=== PATIENT | male | born 1990 | race Caucasian/White ===

== ENCOUNTER 2020-11-07 19:29 | Inpatient (IN) | payer OTHER ==
[~2020-11-07] VITALS: Ht 167.6 cm; Wt 75.4 kg
--- NOTE | ~2020-11-07 | PROC ---
[facility] [address] [place] [address] PROCEDURE REPORT Name: JACQUIE MOTLEY JR Room: [address] IN .R.#: [id number] Admission: 11/07/20 Attend Phys: Emery Heaton MD Discharge: 11/14/20 Date of : 89 Report #: [id number] THIS REPORT FOR: cc: FAM - No family physician/PCP FAM - No family physician/PCP [facility],Medical Records Staff ~ For GI report, please see the Provation report in Perceptive 7 content. By: [id number] Records Staff THOMAS /DUSTIN
[2020-11-07 19:37] VITALS: BP 154/90
[2020-11-07 20:11] LABS: URINE BLOOD 1+ (Negative); URINE CLARITY CLEAR; URINE COLOR DARK YELLOW; URINE GLUCOSE-RANDOM NEGATIVE (Negative); URINE KETONES 2+ (Negative); URINE LEUKOCYTES-REFLEX NEGATIVE (Negative); URINE PROTEIN 1+ (Negative); URINE SPECIFIC GRAVITY >= 1.030 (1.005-1.030)
[2020-11-07 20:12] LABS: ICTOTEST (BILI CONFIRMATORY) Positive (Negative); URINE BILIRUBIN 3+ (Negative); URINE NITRITE-REFLEX POSITIVE (Negative)
[2020-11-07 20:16] LABS: ABSOLUTE BASOPHILS 0.1 thou/uL (0.0-0.2); ABSOLUTE LYMPHOCYTES 0.7 thou/uL (0.8-5.3); ABSOLUTE MONOCYTES 0.9 thou/uL (0.0-1.2); ABSOLUTE NEUTROPHILS 6.5 thou/uL (1.6-8.1); BASOPHILS 0.6 %; HEMATOCRIT 44.4 % (42.0-52.0); HEMOGLOBIN 15.3 gm/dL (14.0-18.0); LYMPHOCYTES 8.4 %; MCH 37.3 pg (26.0-34.0); MCHC 34.4 g/dL (28.0-37.0); MCV 108.6 fL (80.0-100.0); MONOCYTES 10.9 %; MPV 11.4 fl. (7.2-11.1); NUCLEATED RBCS 0 /100WBC; PLATELET COUNT* 102 thou/uL (150-400); POLYS 80.1 %; RBC 4.09 mil/uL (4.50-6.00); RDW-CV 13.5 % (10.5-14.5); WBC 8.2 thou/uL (4.0-11.0)
[2020-11-07 20:18] LABS: CALCIUM 8.9 mg/dL (8.5-10.1); CREATININE 0.8 mg/dL (0.6-1.3); POTASSIUM 3.9 mmol/L (3.5-5.1)
[2020-11-07 20:20] LABS: MUCUS >6 Heavy strn/LPF (None Seen)
[2020-11-07 20:21] LABS: BACTERIA-REFLEX 1-9 Few /HPF (None Seen); HYALINE CASTS 0-3 Few /LPF (None Seen); SQUAMOUS 0-3 Few /LPF (0-3); URINE RBC 0-2 Rare /HPF (0-2); URINE WBC-REFLEX 0-5 Rare /HPF (0-5)
[2020-11-07 20:22] LABS: CRYSTALS None Seen /LPF (None Seen)
[2020-11-07 20:23] LABS: ALBUMIN 2.7 g/dL (3.4-5.0); MAGNESIUM 1.9 mg/dL (1.8-2.4); TOTAL BILIRUBIN 6.9 mg/dL (<0.1-1.0); TOTAL PROTEIN 7.9 g/dL (6.4-8.2)
[2020-11-07 20:27] LABS: INR 1.2; PROTIME 12.9 Seconds (9.20-11.50)
[2020-11-07 20:27] LABS: AMP/METHAMP POSITIVE (Negative); BARBITURATES Negative (Negative); BENZODIAZEPINES POSITIVE (Negative); COCAINE Negative (Negative); METHADONE Negative (Negative); OPIATES Negative (Negative); PCP Negative (Negative); THC POSITIVE (Negative)
[2020-11-08] VITALS (24 sets, daily range): BP systolic 133–168; BP diastolic 71–110
[2020-11-09] VITALS (14 sets, daily range): BP systolic 130–154; BP diastolic 88–100
[2020-11-09 03:34] LABS: HEMATOCRIT 43.2 % (42.0-52.0); HEMOGLOBIN 14.9 gm/dL (14.0-18.0); MCH 37.1 pg (26.0-34.0); MCHC 34.5 g/dL (28.0-37.0); MCV 107.3 fL (80.0-100.0); RBC 4.02 mil/uL (4.50-6.00); RDW-CV 13.2 % (10.5-14.5); WBC 13.5 thou/uL (4.0-11.0)
[2020-11-09 03:59] LABS: CALCIUM 8.3 mg/dL (8.5-10.1); CREATININE 0.8 mg/dL (0.6-1.3); POTASSIUM 3.5 mmol/L (3.5-5.1)
[2020-11-09] MEDS ORDERED: HYDROCODON-ACE1 EAC7 PO (08:22)
--- NOTE | 2020-11-09 10:22 | EKG ---
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
[2020-11-10] VITALS: BP 141/98
[2020-11-10 04:00] VITALS: BP 138/94
[2020-11-10 04:27] LABS: HEMOGLOBIN 14.4 gm/dL (14.0-18.0); MCH 37.2 pg (26.0-34.0); MCHC 34.4 g/dL (28.0-37.0); MCV 108.4 fL (80.0-100.0); MPV 10.4 fl. (7.2-11.1); RBC 3.88 mil/uL (4.50-6.00); RDW-CV 13.6 % (10.5-14.5); WBC 10.9 thou/uL (4.0-11.0)
[2020-11-10 04:55] LABS: CALCIUM 7.9 mg/dL (8.5-10.1); CREATININE 0.6 mg/dL (0.6-1.3); POTASSIUM 4.9 mmol/L (3.5-5.1)
[2020-11-10 08:13] VITALS: BP 131/85
[2020-11-10 12:11] VITALS: BP 121/79
[2020-11-10 16:00] VITALS: BP 128/74
[2020-11-10 20:00] VITALS: BP 140/98
[2020-11-11] VITALS: BP 133/86
[2020-11-11 04:38] VITALS: BP 132/91
[2020-11-11 05:05] LABS: ABSOLUTE BASOPHILS 0.1 thou/uL (0.0-0.2); ABSOLUTE EOSINOPHILS 0.1 thou/uL (0.0-0.7); ABSOLUTE LYMPHOCYTES 0.8 thou/uL (0.8-5.3); ABSOLUTE MONOCYTES 1.3 thou/uL (0.0-1.2); ABSOLUTE NEUTROPHILS 7.1 thou/uL (1.6-8.1); BASOPHILS 0.8 %; EOSINOPHILS 1.6 %; HEMATOCRIT 39.1 % (42.0-52.0); HEMOGLOBIN 13.4 gm/dL (14.0-18.0); LYMPHOCYTES 8.7 %; MCH 36.9 pg (26.0-34.0); MCHC 34.2 g/dL (28.0-37.0); MONOCYTES 13.4 %; MPV 10.6 fl. (7.2-11.1); NUCLEATED RBCS 0 /100WBC; PLATELET COUNT* 91 thou/uL (150-400); POLYS 75.5 %; RBC 3.62 mil/uL (4.50-6.00); RDW-CV 13.5 % (10.5-14.5); WBC 9.4 thou/uL (4.0-11.0)
[2020-11-11 05:07] LABS: ALBUMIN 1.6 g/dL (3.4-5.0); CREATININE 0.7 mg/dL (0.6-1.3); TOTAL BILIRUBIN 6.8 mg/dL (<0.1-1.0); TOTAL PROTEIN 5.5 g/dL (6.4-8.2)
[2020-11-11 05:19] LABS: POTASSIUM 3.4 mmol/L (3.5-5.1)
[2020-11-11 08:24] VITALS: BP 141/96
[2020-11-11 11:57] VITALS: BP 140/96
[2020-11-11 16:43] VITALS: BP 128/79
[2020-11-11 20:00] VITALS: BP 140/93
[2020-11-11 23:06] LABS: HEPATITIS B SURFACE AG Negative (Negative)
[2020-11-12] VITALS: BP 140/93
[2020-11-12 04:00] VITALS: BP 139/95
[2020-11-12 08:00] VITALS: BP 155/93
[2020-11-12 08:27] LABS: ABSOLUTE BASOPHILS 0.1 thou/uL (0.0-0.2); ABSOLUTE EOSINOPHILS 0.1 thou/uL (0.0-0.7); ABSOLUTE LYMPHOCYTES 0.6 thou/uL (0.8-5.3); ABSOLUTE MONOCYTES 1.6 thou/uL (0.0-1.2); ABSOLUTE NEUTROPHILS 6.7 thou/uL (1.6-8.1); BASOPHILS 0.7 %; EOSINOPHILS 1.2 %; HEMATOCRIT 40.7 % (42.0-52.0); HEMOGLOBIN 13.9 gm/dL (14.0-18.0); LYMPHOCYTES 6.8 %; MCH 36.6 pg (26.0-34.0); MCV 107.5 fL (80.0-100.0); MPV 10.5 fl. (7.2-11.1); NUCLEATED RBCS 0 /100WBC; PLATELET COUNT* 114 thou/uL (150-400); POLYS 73.3 %; RBC 3.79 mil/uL (4.50-6.00); RDW-CV 13.5 % (10.5-14.5); WBC 9.2 thou/uL (4.0-11.0)
[2020-11-12 08:35] LABS: ALBUMIN 1.9 g/dL (3.4-5.0); CALCIUM 8.5 mg/dL (8.5-10.1); CREATININE 0.7 mg/dL (0.6-1.3); POTASSIUM 3.9 mmol/L (3.5-5.1); TOTAL PROTEIN 5.7 g/dL (6.4-8.2)
[2020-11-12 15:41] VITALS: BP 122/82
[2020-11-12 20:00] VITALS: BP 135/87
[2020-11-13] VITALS: BP 127/83
[2020-11-13 04:00] VITALS: BP 117/87; BP 131/83
[2020-11-13 04:30] LABS: ABSOLUTE BASOPHILS 0.1 thou/uL (0.0-0.2); ABSOLUTE EOSINOPHILS 0.1 thou/uL (0.0-0.7); ABSOLUTE LYMPHOCYTES 0.8 thou/uL (0.8-5.3); ABSOLUTE MONOCYTES 1.7 thou/uL (0.0-1.2); BASOPHILS 0.8 %; EOSINOPHILS 1.7 %; HEMATOCRIT 40.2 % (42.0-52.0); HEMOGLOBIN 13.8 gm/dL (14.0-18.0); LYMPHOCYTES 10.9 %; MCHC 34.3 g/dL (28.0-37.0); MONOCYTES 22.3 %; NUCLEATED RBCS 0 /100WBC; PLATELET COUNT* 119 thou/uL (150-400); POLYS 64.3 %; RBC 3.72 mil/uL (4.50-6.00); RDW-CV 13.6 % (10.5-14.5); WBC 7.8 thou/uL (4.0-11.0)
[2020-11-13 05:08] LABS: ALBUMIN 1.7 g/dL (3.4-5.0); CREATININE 0.7 mg/dL (0.6-1.3); POTASSIUM 3.2 mmol/L (3.5-5.1); TOTAL BILIRUBIN 6.8 mg/dL (<0.1-1.0); TOTAL PROTEIN 5.9 g/dL (6.4-8.2)
[2020-11-13 05:20] LABS: INR 1.4; PROTIME 14.3 Seconds (9.20-11.50)
[2020-11-13 08:00] VITALS: BP 136/86
[2020-11-13 16:00] VITALS: BP 129/84
[2020-11-13 19:30] VITALS: BP 136/88
[2020-11-14] VITALS: BP 122/82
[2020-11-14 03:54] VITALS: BP 130/83
[2020-11-14 04:36] LABS: HEMOGLOBIN 13.8 gm/dL (14.0-18.0); NUCLEATED RBCS 0 /100WBC; PLATELET COUNT* 125 thou/uL (150-400)
[2020-11-14 04:39] LABS: HEMATOCRIT 39.7 % (42.0-52.0); MCH 37.3 pg (26.0-34.0); MCHC 34.7 g/dL (28.0-37.0); MCV 107.3 fL (80.0-100.0); MPV 10.6 fl. (7.2-11.1); RDW-CV 13.8 % (10.5-14.5); WBC 6.2 thou/uL (4.0-11.0)
[2020-11-14 05:23] LABS: ALBUMIN 1.7 g/dL (3.4-5.0); CREATININE 0.7 mg/dL (0.6-1.3); POTASSIUM 3.2 mmol/L (3.5-5.1); TOTAL BILIRUBIN 6.2 mg/dL (<0.1-1.0); TOTAL PROTEIN 5.9 g/dL (6.4-8.2)
[2020-11-14 06:31] LABS: ABSOLUTE EOSINOPHILS 0.1 thou/uL (0.0-0.7); ABSOLUTE LYMPHOCYTES 0.5 thou/uL (0.8-5.3); ABSOLUTE MONOCYTES 0.9 thou/uL (0.0-1.2); ABSOLUTE NEUTROPHILS 4.7 thou/uL (1.6-8.1)
[2020-11-14 06:32] LABS: ANISOCYTOSIS 1+; PLATELET ESTIMATE DECREASED; POIKILOCYTOSIS 1+; POLYCHROMASIA 1+; TARGET CELLS Occasional
[2020-11-14 08:00] VITALS: BP 117/79
[2020-11-14 12:00] VITALS: BP 112/66
[2020-11-14 13:00] VITALS: BP 112/66
[2020-11-14] MEDS ORDERED: HYDROCODON-ACE1 EAC7 PO (13:17)
[2020-11-14] MEDS ORDERED: LASIX 40 MG TAB40 M1 PO (14:12)
[2020-11-14] MEDS ORDERED: SPIRONOLACTONE25 MG PO (14:12)
--- NOTE | 2020-11-17 17:06 | PATH ---
[address] [address] PATHOLOGY RPT PROCEDURE Name: JAVI MOTLEY JR Room: [address] IN M.R.#: [id number] Admission: 11/07/20 Date of : [birth year] Discharge: 11/14/20 Report #: [id number] Path Case #: [id number] [facility] Accession Number: [id number] . 01 Material submitted: . PART A: duodenum - DUODENAL BIOPSY R/O CELIAC SPRUE PART B: gastrointestinal site - GASTRIC BIOPSY R/O GASTROPATHY . 01 Clinical history: . EGD IN OR A. R/O CELIAC SPRUE B. R/O GASTROPATHY . 02 Diagnosis: A. Duodenal biopsy: - Mild nonspecific active duodenitis, negative for granulomas, viral inclusions, significant intraepithelial lymphocytosis/villous atrophy and dysplasia. See comment. . B. Gastric biopsy: - Mild nonspecific chronic gastritis, negative for Helicobacter pylori organisms, granulomas and dysplasia. . (CORY:avtar; 11/17/2020) MBR 11/17/2020 1255 Local . 02 Comment: Because there is no significant intraepithelial lymphocytosis or villous atrophy seen in the duodenal biopsy, celiac disease is unlikely. (CORY:avtar; 11/17/2020) . . Special stain: H. pylori immuno on B . 02 Electronically signed: . Edy Davidson MD, Pathologist NPI- [id number] . 01 Gross description: . A. The specimen is received in formalin, labeled "Javi Motley Jr., duodenal biopsy ". Received are two segments of pale hedrick tissue measuring 0.2 and 0.3 cm in maximum dimensions. The specimen is submitted entirely in cassette A1. . B. The specimen is received in formalin, labeled "Javi Motley Jr., gastric biopsy". Received are two segments of pale hedrick tissue measuring 0.2 and 0.4 cm in maximum dimensions. The specimen is submitted entirely in cassette B1[place] [address] PATHOLOGY RPT PROCEDURE Name: JAVI MOTLEY JR Room: [address] IN [facility].#: [id number] Admission: 11/07/20 Date of : 89 Discharge: 11/14/20 Report #: [id number] Path Case #: [id number] (CAA; 11/14/2020) QAC/QAC 11/14/2020 1206 Local . 02 Pathologist provided ICD-10: K29.80, K29.50 . 02 CPT . 527555, 543398, X80923 Specimen Comment: A courtesy copy of this report has been sent to [phone], [phone] Specimen Comment: [phone] Specimen Comment: Report sent to / DR ANAYA Specimen Comment: A duplicate report has been generated due to demographic updates. Performed at: [address], [place] [id number] MD Remington Marin MD Phone: [phone] Performed at: 02 [facility] [address], [place], [place] [id number] MD Edy Davidson MD Phone: [phone]
== END 2020-11-14 13:55 | disposition home or self-care (01) | DRG 439 ==
LOC: M.ERS 19:29 → M.TBA-ER 22:41 → M.ICU 11-08 00:35 → M.2W 11-09 19:56
PROVIDERS: Family Medicine; Internal Medicine; Internal Medicine Gastroenterology; Nurse Practitioner Family; Personal Emergency Response Attendant; ADMIT Internal Medicine; ATTEND Internal Medicine
DX: K85.20 Alcohol induced acute pancreatitis without necrosis or infection (principal); R65.10 Systemic inflammatory response syndrome (SIRS) of non-infectious origin without acute organ dysfunction; E87.1 Hypo-osmolality and hyponatremia; N39.0 Urinary tract infection, site not specified; K76.6 Portal hypertension; I85.00 Esophageal varices without bleeding; E80.6 Other disorders of bilirubin metabolism; F19.11 Other psychoactive substance abuse, in remission; F10.20 Alcohol dependence, uncomplicated; Y90.9 Presence of alcohol in blood, level not specified; F17.200 Nicotine dependence, unspecified, uncomplicated; D69.6 Thrombocytopenia, unspecified; R00.0 Tachycardia, unspecified; E83.51 Hypocalcemia; K59.00 Constipation, unspecified; K31.89 Other diseases of stomach and duodenum; K44.9 Diaphragmatic hernia without obstruction or gangrene; K70.11 Alcoholic hepatitis with ascites; R74.01 Elevation of levels of liver transaminase levels; B96.89 Other specified bacterial agents as the cause of diseases classified elsewhere; Z20.822 Contact with and (suspected) exposure to COVID-19

== ENCOUNTER 2021-04-29 16:25 | Inpatient (IN) | payer OTHER ==
[~2021-04-29] VITALS: Ht 152.4 cm; Wt 71.7 kg
--- NOTE | ~2021-04-29 | PROC ---
[facility] [address] [place] [address] PROCEDURE REPORT Name: JACQUIE MOTLEY JR Room: [facility]- ADM IN M.R.#: [id number] Admission: 04/29/21 Attend Phys: Michael Borden Discharge: Date of : 89 Report #: [id number] THIS REPORT FOR: cc: FAM - No family physician/PCP FAM - No family physician/PCP [facility],Medical Records Staff ~ For GI report, please see the Provation report in Perceptive 7 content. By: 1509Medical Records Staff SUZI /DUSTIN
[~2021-04-29 16:25] MED LIST: HYDROCODON-ACE1 EAC7 PO; LASIX 40 MG TAB40 M1 PO; SPIRONOLACTONE25 MG PO
[2021-04-29 16:35] VITALS: BP 140/80
[2021-04-29 17:57] LABS: ABSOLUTE LYMPHOCYTES 0.6 thou/uL (0.8-5.3); ABSOLUTE MONOCYTES 1.2 thou/uL (0.0-1.2); BASOPHILS 0.3 %; EOSINOPHILS 0.5 %; HEMATOCRIT 38.8 % (42.0-52.0); HEMOGLOBIN 13.8 gm/dL (14.0-18.0); LYMPHOCYTES 8.1 %; MCH 38.6 pg (26.0-34.0); MCHC 35.7 g/dL (28.0-37.0); MCV 108.2 fL (80.0-100.0); MONOCYTES 15.1 %; MPV 10.7 fl. (7.2-11.1); NUCLEATED RBCS 0 /100WBC; RBC 3.58 mil/uL (4.50-6.00); RDW-CV 15.2 % (10.5-14.5); WBC 7.9 thou/uL (4.0-11.0)
[2021-04-29 18:07] LABS: APTT 45.8 Seconds (25.0-31.3); INR 2.5; PROTIME 24.7 Seconds (9.20-11.50)
[2021-04-29 18:09] LABS: CALCIUM 8.2 mg/dL (8.5-10.1); CREATININE 0.8 mg/dL (0.6-1.3); POTASSIUM 3.6 mmol/L (3.5-5.1)
[2021-04-29 18:14] LABS: ALBUMIN 1.6 g/dL (3.4-5.0); TOTAL BILIRUBIN 13.9 mg/dL (<0.1-1.0); TOTAL PROTEIN 7.4 g/dL (6.4-8.2)
[2021-04-29 18:27] LABS: CLUMPED PLTS RARE; MACROCYTES 2+; PLATELET ESTIMATE DECREASED
[2021-04-29 18:28] LABS: LARGE PLATELETS OCCASIONAL; TARGET CELLS Occasional
[2021-04-29 18:29] LABS: PLATELET COUNT* 64 thou/uL (150-400)
[2021-04-29 20:11] VITALS: BP 119/65
[2021-04-30] VITALS: BP 119/63
[2021-04-30 04:00] VITALS: BP 110/65
[2021-04-30 07:34] VITALS: BP 110/69
[2021-04-30 08:48] LABS: RBC 3.12 mil/uL (4.50-6.00)
[2021-04-30 08:50] LABS: ABSOLUTE BASOPHILS 0.1 thou/uL (0.0-0.2); ABSOLUTE EOSINOPHILS 0.1 thou/uL (0.0-0.7); ABSOLUTE LYMPHOCYTES 1.3 thou/uL (0.8-5.3); ABSOLUTE MONOCYTES 0.9 thou/uL (0.0-1.2); ABSOLUTE NEUTROPHILS 3.5 thou/uL (1.6-8.1); BASOPHILS 1.2 %; EOSINOPHILS 1.6 %; HEMATOCRIT 33.8 % (42.0-52.0); HEMOGLOBIN 11.9 gm/dL (14.0-18.0); LYMPHOCYTES 21.5 %; MCH 38.2 pg (26.0-34.0); MCHC 35.3 g/dL (28.0-37.0); MCV 108.4 fL (80.0-100.0); MONOCYTES 15.7 %; MPV 11.3 fl. (7.2-11.1); NUCLEATED RBCS 0 /100WBC; PLATELET COUNT* 58 thou/uL (150-400); RDW-CV 15.5 % (10.5-14.5); WBC 5.8 thou/uL (4.0-11.0)
[2021-04-30 08:57] LABS: ALBUMIN 1.4 g/dL (3.4-5.0); CALCIUM 7.6 mg/dL (8.5-10.1); CREATININE 0.7 mg/dL (0.6-1.3); POTASSIUM 3.8 mmol/L (3.5-5.1); TOTAL BILIRUBIN 12.2 mg/dL (<0.1-1.0)
[2021-04-30 12:11] VITALS: BP 119/67
[2021-04-30 12:23] LABS: AMP/METHAMP Negative (Negative); BARBITURATES Negative (Negative); BENZODIAZEPINES Negative (Negative); COCAINE Negative (Negative); METHADONE Negative (Negative); OPIATES POSITIVE (Negative); PCP Negative (Negative); THC POSITIVE (Negative)
[2021-04-30 20:45] VITALS: BP 124/69
[2021-05-01 01:12] VITALS: BP 135/79
[2021-05-01 04:46] VITALS: BP 122/76
[2021-05-01 08:26] LABS: HEMATOCRIT 35.7 % (42.0-52.0); HEMOGLOBIN 12.4 gm/dL (14.0-18.0)
[2021-05-01 08:34] LABS: MCH 37.8 pg (26.0-34.0); MCHC 34.8 g/dL (28.0-37.0); MCV 108.6 fL (80.0-100.0); MPV 11.2 fl. (7.2-11.1); NUCLEATED RBCS 0 /100WBC; PLATELET COUNT* 73 thou/uL (150-400); RBC 3.29 mil/uL (4.50-6.00); RDW-CV 15.3 % (10.5-14.5); WBC 7.4 thou/uL (4.0-11.0)
[2021-05-01 09:32] LABS: ALBUMIN 1.4 g/dL (3.4-5.0); CREATININE 0.7 mg/dL (0.6-1.3); POTASSIUM 3.6 mmol/L (3.5-5.1); TOTAL BILIRUBIN 13.6 mg/dL (<0.1-1.0); TOTAL PROTEIN 6.7 g/dL (6.4-8.2)
[2021-05-01 09:40] LABS: ABSOLUTE EOSINOPHILS 0.1 thou/uL (0.0-0.7); ABSOLUTE LYMPHOCYTES 0.7 thou/uL (0.8-5.3); ABSOLUTE MONOCYTES 0.8 thou/uL (0.0-1.2); ABSOLUTE NEUTROPHILS 5.8 thou/uL (1.6-8.1); PLATELET ESTIMATE ADEQUATE
[2021-05-01 12:00] VITALS: BP 108/59; BP 123/69
[2021-05-01 16:00] VITALS: BP 116/67
[2021-05-01 19:50] VITALS: BP 123/78
[2021-05-02 00:15] VITALS: BP 127/79
[2021-05-02 04:25] VITALS: BP 122/77
[2021-05-02 08:00] VITALS: BP 134/79
[2021-05-02] MEDS ORDERED: B-1100 MG PO (13:05)
[2021-05-02] MEDS ORDERED: PROTONIX40 M2 PO (13:05)
[2021-05-02] MEDS ORDERED: FOLIC ACID1 MG PO (13:05)
[2021-05-02] MEDS ORDERED: SUPER THERAVIT1 EACH PO (13:05)
[2021-05-02 14:52] VITALS: BP 134/79
== END 2021-05-02 16:04 | disposition home or self-care (01) | DRG 432 ==
LOC: M.ERS 16:25 → M.TBA-ER 18:31 → M.2W 20:29
PROVIDERS: Internal Medicine; Physician Assistant; ADMIT Internal Medicine; ATTEND Internal Medicine
PROC: 0DJ08ZZ Inspection of Upper Intestinal Tract, Via Natural or Artificial Opening Endoscopic (ICD-10-PCS; principal; 2021-05-01)
DX: K70.30 Alcoholic cirrhosis of liver without ascites (principal); G92 Toxic encephalopathy; K92.2 Gastrointestinal hemorrhage, unspecified; F10.239 Alcohol dependence with withdrawal, unspecified; I85.00 Esophageal varices without bleeding; D69.6 Thrombocytopenia, unspecified; F17.210 Nicotine dependence, cigarettes, uncomplicated; Z20.822 Contact with and (suspected) exposure to COVID-19

== ENCOUNTER 2021-05-15 17:54 | Observation (INO) | payer OTHER ==
[~2021-05-15] VITALS: Ht 167.6 cm; Wt 76.4 kg
[~2021-05-15 17:54] MED LIST changes: +B-1100 MG PO; +FOLIC ACID1 MG PO; +PROTONIX40 M2 PO; +SUPER THERAVIT1 EACH PO
[2021-05-15 18:08] VITALS: BP 143/78
[2021-05-15 19:07] LABS: ABSOLUTE EOSINOPHILS 0.2 thou/uL (0.0-0.7); ABSOLUTE LYMPHOCYTES 1.3 thou/uL (0.8-5.3); ABSOLUTE MONOCYTES 0.8 thou/uL (0.0-1.2); ABSOLUTE NEUTROPHILS 3.4 thou/uL (1.6-8.1); BASOPHILS 0.3 %; EOSINOPHILS 3.2 %; HEMATOCRIT 32.9 % (42.0-52.0); HEMOGLOBIN 11.4 gm/dL (14.0-18.0); LYMPHOCYTES 22.8 %; MCH 38.8 pg (26.0-34.0); MCHC 34.7 g/dL (28.0-37.0); MONOCYTES 14.8 %; MPV 9.9 fl. (7.2-11.1); NUCLEATED RBCS 0 /100WBC; POLYS 58.9 %; RBC 2.94 mil/uL (4.50-6.00); WBC 5.7 thou/uL (4.0-11.0)
[2021-05-15 19:09] LABS: CREATININE 0.9 mg/dL (0.6-1.3); POTASSIUM 4.2 mmol/L (3.5-5.1)
[2021-05-15 19:12] LABS: INR 1.5; PROTIME 15.6 Seconds (9.20-11.50)
[2021-05-15 19:13] LABS: ALBUMIN 1.2 g/dL (3.4-5.0); TOTAL BILIRUBIN 5.3 mg/dL (<0.1-1.0); TOTAL PROTEIN 6.5 g/dL (6.4-8.2)
[2021-05-15 19:17] LABS: URINE BLOOD NEGATIVE (Negative); URINE CLARITY CLEAR; URINE COLOR YELLOW; URINE GLUCOSE-RANDOM NEGATIVE (Negative); URINE KETONES NEGATIVE (Negative); URINE LEUKOCYTES NEGATIVE (Negative); URINE NITRITE NEGATIVE (Negative); URINE PROTEIN NEGATIVE (Negative); URINE SPECIFIC GRAVITY 1.015 (1.005-1.030)
[2021-05-15 19:18] LABS: ICTOTEST (BILI CONFIRMATORY) Positive (Negative); URINE BILIRUBIN 2+ (Negative)
[2021-05-15 19:26] LABS: PLATELET COUNT* 100 thou/uL (150-400)
[2021-05-15 23:35] VITALS: BP 118/54
[2021-05-15 23:49] VITALS: BP 139/79
[2021-05-16 04:00] VITALS: BP 99/57
[2021-05-16 08:41] VITALS: BP 110/64
[2021-05-16] MEDS ORDERED: LASIX 40 MG TAB40 MG PO (10:03)
[2021-05-16 12:09] VITALS: BP 108/61
[2021-05-16 12:42] VITALS: BP 108/61
--- NOTE | 2021-05-16 12:51 | EKG ---
[place] [address] ELECTROCARDIOGRAM REPORT Name: JAVI MOTLEY [address]: [address] [id number] Admission: 05/15/21 Attend Phys: Isidro Catalan Discharge: Date of : 89 Date of Service: 05/15/21 1859 Report #: [id number] THIS REPORT FOR: //name// [facility] ED Test Date: 2021-05-15 Test Time: 18:59:14 Pat Name: JAVI MOTLEY Department: Room: [facility] Gender: M King Maker: [facility] : 1990 Requested By: Soy Key Order Number: [id number] MD: Javi Brewster Measurements Intervals [place] Rate: 87 P: 53 MT: 128 QRS: 8 QRSD: 75 T: -2 QT: 394 QTc: 474 Interpretive Statements Sinus rhythm Baseline wander in lead(s) I,II,aVR,aVL,V1,V2 Compared to ECG 11/07/2020 20:41:43 No significant changes Electronically Signed On 05-16-2021 12:51:37 CDT by Javi Brewster [email or web address] <ELECTRONICALLY SIGNED> By: Javi Brewster MD, FACC 05/16/21 1251 58 58 Javi Brewster MD, FACC /EPI
== END 2021-05-16 13:13 | disposition home or self-care (01) ==
LOC: M.ERS 17:54 → M.ORTHSURG 21:49 → M.TBA-ER 21:49 → M.ORTHSURG 23:10
PROVIDERS: Physician Assistant; ADMIT Internal Medicine; ATTEND Internal Medicine
DX: K70.31 Alcoholic cirrhosis of liver with ascites (principal); Z20.822 Contact with and (suspected) exposure to COVID-19; R17 Unspecified jaundice; D69.6 Thrombocytopenia, unspecified; R16.1 Splenomegaly, not elsewhere classified; I85.00 Esophageal varices without bleeding; F19.10 Other psychoactive substance abuse, uncomplicated; F10.20 Alcohol dependence, uncomplicated; Z79.899 Other long term (current) drug therapy

== ENCOUNTER 2021-08-13 20:44 | Emergency (ER) | payer OTHER, MEDICAID ==
[~2021-08-13 20:44] MED LIST changes: +LASIX 40 MG TAB40 MG PO
== END 2021-08-13 21:15 | disposition left against medical advice (07) ==
LOC: M.ERS 20:44
DX: R10.10 Upper abdominal pain, unspecified (principal); Z53.21 Procedure and treatment not carried out due to patient leaving prior to being seen by health care provider

== ENCOUNTER 2021-09-10 17:20 | Inpatient (IN) | payer OTHER, MEDICAID ==
[~2021-09-10] VITALS: Ht 167.6 cm; Wt 62.1 kg
--- NOTE | ~2021-09-10 | PROC ---
[address] [address] PROCEDURE REPORT Name: JACQUIE MOTLEY JR Room: [address] IN M.R.#: [id number] Admission: 09/10/21 Attend Phys: Giselle Richardson MD Discharge: 09/14/21 Date of : [birth year] Report #: [id number] THIS REPORT FOR: cc: Jacinta Yeager NP, Cassie NP [facility],Medical Records Staff ~ For GI report, please see the Provation report in Perceptive 7 content. By: 0701Medical Records Staff SUZI /DUSTIN
[2021-09-10 18:15] VITALS: BP 152/79
[2021-09-10] MEDS ORDERED: NEURONTIN 300M300 M2 PO (18:23)
[2021-09-10 19:58] LABS: ABSOLUTE LYMPHOCYTES 1.2 thou/uL (0.8-5.3); ABSOLUTE MONOCYTES 0.7 thou/uL (0.0-1.2); ABSOLUTE NEUTROPHILS 5.4 thou/uL (1.6-8.1); BASOPHILS 0.6 %; EOSINOPHILS 0.3 %; HEMATOCRIT 39.7 % (42.0-52.0); HEMOGLOBIN 13.6 gm/dL (14.0-18.0); LYMPHOCYTES 16.7 %; MCH 36.1 pg (26.0-34.0); MCHC 34.1 g/dL (28.0-37.0); MCV 105.8 fL (80.0-100.0); MONOCYTES 9.2 %; MPV 9.7 fl. (7.2-11.1); NUCLEATED RBCS 0 /100WBC; POLYS 73.2 %; RBC 3.76 mil/uL (4.50-6.00); RDW-CV 15.1 % (10.5-14.5); WBC 7.3 thou/uL (4.0-11.0)
[2021-09-10 20:06] LABS: CALCIUM 8.2 mg/dL (8.5-10.1); CREATININE 0.6 mg/dL (0.6-1.3); PLATELET COUNT* 49 thou/uL (150-400); POTASSIUM 3.7 mmol/L (3.5-5.1)
[2021-09-10 20:09] LABS: INR 1.5; PROTIME 15.1 Seconds (9.20-11.50)
[2021-09-10 20:11] LABS: ALBUMIN 2.4 g/dL (3.4-5.0); TOTAL BILIRUBIN 5.3 mg/dL (<0.1-1.0); TOTAL PROTEIN 7.6 g/dL (6.4-8.2)
[2021-09-11] VITALS (7 sets, daily range): BP systolic 82–141; BP diastolic 38–91
[2021-09-11 10:42] LABS: CALCIUM 7.4 mg/dL (8.5-10.1); CREATININE 0.8 mg/dL (0.6-1.3); POTASSIUM 3.5 mmol/L (3.5-5.1)
[2021-09-11 10:45] LABS: MAGNESIUM 1.5 mg/dL (1.8-2.4); PHOSPHORUS* 2.1 mg/dL (2.5-4.9)
[2021-09-11 13:50] LABS: ABSOLUTE BASOPHILS 0.1 thou/uL (0.0-0.2); ABSOLUTE EOSINOPHILS 0.1 thou/uL (0.0-0.7); ABSOLUTE LYMPHOCYTES 0.6 thou/uL (0.8-5.3); ABSOLUTE MONOCYTES 0.6 thou/uL (0.0-1.2); ABSOLUTE NEUTROPHILS 3.5 thou/uL (1.6-8.1); BASOPHILS 1.6 %; EOSINOPHILS 1.6 %; HEMATOCRIT 37.9 % (42.0-52.0); HEMOGLOBIN 13.1 gm/dL (14.0-18.0); LYMPHOCYTES 13.4 %; MCH 36.3 pg (26.0-34.0); MCHC 34.5 g/dL (28.0-37.0); MCV 105.2 fL (80.0-100.0); MONOCYTES 11.4 %; MPV 9.4 fl. (7.2-11.1); NUCLEATED RBCS 0 /100WBC; WBC 4.8 thou/uL (4.0-11.0)
[2021-09-11 13:53] LABS: PLATELET COUNT* 38 thou/uL (150-400)
[2021-09-11 14:05] LABS: CALCIUM 7.5 mg/dL (8.5-10.1); CREATININE 0.8 mg/dL (0.6-1.3); POTASSIUM 3.5 mmol/L (3.5-5.1)
[2021-09-11 14:10] LABS: TOTAL BILIRUBIN 4.6 mg/dL (<0.1-1.0); TOTAL PROTEIN 6.5 g/dL (6.4-8.2)
[2021-09-12] VITALS (7 sets, daily range): BP systolic 122–141; BP diastolic 72–83
--- NOTE | 2021-09-12 04:37 | NUR ---
PT LETHARGIC, ORIENTED TO SELF AND PLACE. FENTANYL GIVEN FOR PAIN LUQ. CIWA 4. ON RA. CARDIAC MONTITOR TRACING SR.
[2021-09-12 06:21] LABS: CALCIUM 7.8 mg/dL (8.5-10.1); CREATININE 0.7 mg/dL (0.6-1.3); HEMATOCRIT 36.6 % (42.0-52.0); HEMOGLOBIN 12.5 gm/dL (14.0-18.0); MCH 36.1 pg (26.0-34.0); MCHC 34.3 g/dL (28.0-37.0); MCV 105.3 fL (80.0-100.0); MPV 9.1 fl. (7.2-11.1); NUCLEATED RBCS 0 /100WBC; POTASSIUM 3.4 mmol/L (3.5-5.1); RBC 3.48 mil/uL (4.50-6.00); RDW-CV 14.9 % (10.5-14.5); TOTAL BILIRUBIN 4.7 mg/dL (<0.1-1.0); TOTAL PROTEIN 6.4 g/dL (6.4-8.2); WBC 4.8 thou/uL (4.0-11.0)
[2021-09-12 07:18] LABS: PLATELET COUNT* 42 thou/uL (150-400)
[2021-09-12 07:54] LABS: INR 1.6
[2021-09-12 11:41] LABS: ABSOLUTE EOSINOPHILS 0.2 thou/uL (0.0-0.7); ABSOLUTE LYMPHOCYTES 0.9 thou/uL (0.8-5.3); ABSOLUTE MONOCYTES 0.6 thou/uL (0.0-1.2); ABSOLUTE NEUTROPHILS 3.1 thou/uL (1.6-8.1)
[2021-09-12 11:42] LABS: PLATELET ESTIMATE DECREASED
[2021-09-12 13:57] LABS: ABSOLUTE BASOPHILS 0.1 thou/uL (0.0-0.2); ABSOLUTE EOSINOPHILS 0.1 thou/uL (0.0-0.7); ABSOLUTE LYMPHOCYTES 0.7 thou/uL (0.8-5.3); ABSOLUTE MONOCYTES 0.6 thou/uL (0.0-1.2); ABSOLUTE NEUTROPHILS 3.3 thou/uL (1.6-8.1); BASOPHILS 1.6 %; EOSINOPHILS 2.9 %; HEMATOCRIT 38.9 % (42.0-52.0); HEMOGLOBIN 13.4 gm/dL (14.0-18.0); LYMPHOCYTES 14.5 %; MCH 36.1 pg (26.0-34.0); MCHC 34.3 g/dL (28.0-37.0); MCV 105.2 fL (80.0-100.0); MONOCYTES 13.1 %; NUCLEATED RBCS 0 /100WBC; POLYS 67.9 %; RDW-CV 15.1 % (10.5-14.5); WBC 4.8 thou/uL (4.0-11.0)
[2021-09-12 14:34] LABS: PLATELET COUNT* 46 thou/uL (150-400)
[2021-09-12 14:36] LABS: MPV 9.9 fl. (7.2-11.1)
[2021-09-13] VITALS: BP 136/81
[2021-09-13 03:42] LABS: HEMATOCRIT 38.5 % (42.0-52.0); HEMOGLOBIN 13.1 gm/dL (14.0-18.0); MCHC 34.1 g/dL (28.0-37.0); MCV 105.5 fL (80.0-100.0); MPV 9.3 fl. (7.2-11.1); RBC 3.65 mil/uL (4.50-6.00); WBC 5.7 thou/uL (4.0-11.0)
[2021-09-13 04:05] LABS: CALCIUM 7.7 mg/dL (8.5-10.1); CREATININE 0.7 mg/dL (0.6-1.3); POTASSIUM 3.3 mmol/L (3.5-5.1); TOTAL BILIRUBIN 3.9 mg/dL (<0.1-1.0); TOTAL PROTEIN 6.7 g/dL (6.4-8.2)
[2021-09-13 04:20] VITALS: BP 122/71
[2021-09-13 08:05] VITALS: BP 135/80
[2021-09-13 11:30] VITALS: BP 134/80
[2021-09-13 16:00] VITALS: BP 120/69
[2021-09-13 19:56] VITALS: BP 112/67
[2021-09-14] VITALS: BP 110/62
[2021-09-14 04:00] VITALS: BP 119/74
--- NOTE | 2021-09-14 04:01 | NUR ---
PT A&OX4, VSS ON ROOM AIR. SR ON TELE MONITOR. UP WITH SBA. IV SALINE LOCKED. PRN PO PAIN MED REQUESTED AND GIVEN ORDERED. PT SLEEPING WELL, WILL CONTINUE TO MONITOR.
[2021-09-14 06:05] LABS: HEPATITIS B SURFACE AG Negative (Negative)
[2021-09-14 08:00] VITALS: BP 127/76
--- NOTE | 2021-09-14 10:05 | CON ---
[address] [address] CONSULTATION Name: JACQUIE MOTLEY Room: [address] IN .R.#: [id number] Admission: 09/10/21 Attend Phys: Giselle Richardson MD Discharge: Date of : 89 Report #: [id number] THIS REPORT FOR: cc: Jacinta Yeager NP, Cassie NP Vardakis, Gregory DO ~ cc: Giselle Richardson MD, Wing Yeager, JOHANA DATE OF CONSULTATION: 09/11/2021 REFERRING PHYSICIAN: Giselle Richardson MD REASON FOR CONSULTATION: Hematemesis. ASSESSMENT AND PLAN: 1. Hematemesis with history of variceal bleeding -- evaluate for problems related to the same. 2. Alcoholic cirrhosis with continued alcohol abuse. 3. History of polysubstance abuse. RECOMMENDATIONS: Due to the patient's history of variceal bleeding and the fact that he underwent upper endoscopy with variceal banding back in April of last year, we will proceed with an EGD with possible variceal banding today. I have discussed plans with the patient as well and he is agreeable to same. HISTORY OF PRESENT ILLNESS: The patient is a 30-year-old white male with decompensated liver disease secondary to chronic alcohol abuse, who presented to the Emergency Room with complaints of epigastric pain associated with nausea, vomiting and hematemesis. He continues to drink at least a pint of vodka on a daily basis with his last dose being less than 18 hours ago. He states he has been trying to recover from alcohol abuse and has been involved in an outpatient program, but has failed. He has strong family history of alcoholism. He drinks every day, will top for a short period of time, then start drinking again. He denies any complaints of dysphagia, odynophagia, chronic reflux or indigestion. He has had no problem with his bowels or bowel frequency. He was seen through the Emergency Room and is now here for further evaluation and treatment. ALLERGIES: None. MEDICATIONS: That he was on previously included Protonix, furosemide, multivitamin, folic acid, thiamine, but he is currently not taking any medications. He may be taking gabapentin. PAST MEDICAL AND SURGICAL HISTORY: Remarkable for alcoholic cirrhosis with decompensated liver disease secondary to the same. [place] [address] CONSULTATION Name: JACQUIE MOTLEY JR Room: [address] IN [facility]#: [id number] Admission: 09/10/21 Attend Phys: Giselle Richardson MD Discharge: Date of : 89 Report #: [id number] ascites as well as variceal banding. He has also had a history of pancreatitis in the past. He has a longstanding history of chronic alcohol abuse. His last EGD was performed in 04/2021, at which time, my partner, Dr. Vicente, placed 4 bands. SOCIAL HISTORY: The patient is single. He continues to smoke tobacco. He also smokes marijuana on a regular basis. He drinks on a regular basis as well. FAMILY HISTORY: Remarkable for alcoholism in his father, grandfather, and father, paternal uncle and paternal grandfather. PHYSICAL EXAMINATION: GENERAL: Revealed a 30-year-old white male who appears much older than his stated age. CARDIOPULMONARY: Revealed a regular rate and rhythm. LUNGS: Clear. ABDOMEN: Soft. He is not tender. No rebound or guarding noted. LABORATORY DATA: His laboratory tests from admission revealed a white count of 7.3, hemoglobin 13.6, platelet count 49,000. MCV is 105.8 and RDW is 15.1. His differential is normal. This is on 09/10. With hydration and the like, his hemoglobin is 13.1 on 09/11. His complete metabolic panel on the reveals sodium 133, potassium 3.7, chloride 93, bicarb 29, BUN 7, creatinine 0.6. His bilirubin 5.3, alkaline phosphatase 383, AST is 148 and ALT is 47. His albumin is only 2.4. He has 5.2 grams of globulin. By comparison, in 04/2021, his bilirubin was 13.6 with an alkaline phosphatase of 325, AST 110 and ALT of 30. His albumin at that time was only 1.4. In 11/2020, his bilirubin was 6.9, alkaline phosphatase 436, AST was 373 and ALT was 100 with an albumin of 2.7. He has been low on folic acid in the past as well as 3.4 in November of last year. His B12 level was over 1700. His last alpha fetoprotein was 3.4 in November of last year. His testing for hepatitis A, B and C was negative back in 11/2020. His protime is 15.1 with an INR of 1.5. By comparison in 04/2021, his protime was 24.7 with an INR of 2.5. His last abdominal ultrasound was performed in 05/2021, which revealed moderate to large amount of ascites throughout the abdomen. The patient was discharged prior to even get a paracentesis. He must have left AMA back in May [place] [address] CONSULTATION Name: JACQUIE MOTLEY JR Room: [address]#: [id number] Admission: 09/10/21 Attend Phys: Giselle Richardson MD Discharge: Date of : 89 Report #: [id number] scan of the abdomen and pelvis performed in 11/2020 revealed moderate amount of fluid, swelling involving the pancreas, especially around the pancreatic tail extending into the anterior aspect of the retroperitoneum compatible with pancreatitis. There is also relatively mucosal thickening of the duodenum. There is no evidence for necrotizing pancreatitis or vascular compromise. He has a small hiatal hernia, hepatomegaly and fatty infiltration of the liver was noted. DISCUSSION: At the present time, the patient has had recurrent episodes of hematemesis with history of variceal bleeding. We will proceed with an EGD today and make further recommendations thereafter. <ELECTRONICALLY SIGNED> By: Young Rand DO 09/14/21 1005 1108 1546Young Rand DO /nt
[2021-09-14 12:27] VITALS: BP 127/76
[2021-09-14 12:47] VITALS: BP 131/77
--- NOTE | 2021-09-14 12:58 | NUR ---
PT A&OX4. 2 IV'S SUCCESSFULLY REMOVED ALONG WITH THE TELE MONITOR. PT HAS ALL THE BELONGINGS HE ADMITTED WITH IN HIS POSSESSION WELL HIS HOME MEDICATION. PT GIVEN DISCHARGE INSTRUCTIONS AND VERBALIZED UNDERSTANDING OF THEM. PT WHEELED OFF UNIT VIA WHEELCHAIR AT 1250.
== END 2021-09-14 13:00 | disposition home or self-care (01) | DRG 432 ==
LOC: M.ERS 17:20 → M.TBA-ER 20:34 → M.TBA 09-11 16:00 → M.2W 09-11 20:28
PROVIDERS: Emergency Medicine; Internal Medicine; Internal Medicine Gastroenterology; ADMIT Internal Medicine; ATTEND Internal Medicine
PROC: 06L38CZ Occlusion of Esophageal Vein with Extraluminal Device, Via Natural or Artificial Opening Endoscopic (ICD-10-PCS; principal; 2021-09-11)
PROC: 30233R1 Transfusion of Nonautologous Platelets into Peripheral Vein, Percutaneous Approach (ICD-10-PCS; 2021-09-12)
DX: K70.30 Alcoholic cirrhosis of liver without ascites (principal); I85.11 Secondary esophageal varices with bleeding; K76.6 Portal hypertension; F32.A Depression, unspecified; F17.210 Nicotine dependence, cigarettes, uncomplicated; R74.8 Abnormal levels of other serum enzymes; E87.6 Hypokalemia; F10.10 Alcohol abuse, uncomplicated; E88.09 Other disorders of plasma-protein metabolism, not elsewhere classified; F41.9 Anxiety disorder, unspecified; D69.6 Thrombocytopenia, unspecified; K21.9 Gastro-esophageal reflux disease without esophagitis; K31.89 Other diseases of stomach and duodenum; Z20.822 Contact with and (suspected) exposure to COVID-19; Z28.21 Immunization not carried out because of patient refusal; Z88.1 Allergy status to other antibiotic agents; Z79.899 Other long term (current) drug therapy; Z81.1 Family history of alcohol abuse and dependence